=== PATIENT | male | born 1950 | race Caucasian/White ===

== ENCOUNTER 2018-03-18 12:28 | Observation (INO) ==
[2018-03-18] MEDS ORDERED: Tdap (Boostrix) Vaccine 0.5 ML SYRINGE IM ONE (12:46)
--- NOTE | 2018-03-18 12:54 | Emergency Department Note ---
Disposition Clinical Impression: Confusion Fall Qualifiers: Encounter type: initial encounter Qualified Code(s): W19.XXXA - Unspecified fall, initial encounter Closed head injury Qualifiers: Encounter type: initial encounter Qualified Code(s): S09.90XA - Unspecified injury of head, initial encounter Disposition: Admitted As Inpatient Condition: Fair Referrals: Richard Pierson DO [Primary Care Provider] - Forms: ED Satisfaction Letter Time of Disposition: 15:32 Fall HPI - General Chief Complaint: ED Fall Stated Complaint: fall, striking head, dizzy Time Seen by Provider: 03/18/18 12:31 Source: patient, family Nursing Notes Reviewed: Yes Vital Signs Reviewed: Yes - History of Present Illness HPI Narrative: Mr. Vargas, 67-year-old male, presents from home for evaluation of fall this morning. Patient was getting out of bed felt weak, and fell striking the left side of his head on the edge of a nightstand. No loss of consciousness. is concerned as he appears slower of thought however this is improving to her. PMH: Atrial fibrillation on no anticoagulant. Patient was recently started on a diuretic though he is deny history of hypertension. They do note that his prescribing primary care provider instructed him to discontinue the diuretic as his renal function was worsening. No history of CVA or TIA. Anticoagulant: Aspirin 81 by mouth daily. ROS: Positive: As above Negative: Fever, chills, nausea, vomiting, chest pain, palpitations, neck pain, usual back pain, abdominal pain, confusion, changes in vision - Related Data Home Medications Medication Instructions Recorded Confirmed Allopurinol [Zyloprim] 100 mg PO DAILY 12/09/16 12/09/16 Aspirin [Ecotrin] 325 mg PO DAILY 12/09/16 12/09/16 Carvedilol [Coreg] 6.25 mg PO BIDWM 12/09/16 12/09/16 Cholecalciferol (D-3) [Vitamin D] 2,000 unit PO DAILY 12/09/16 12/09/16 Furosemide [Lasix] 40 mg PO DAILY 12/09/16 12/09/16 Insulin Glargine [Lantus] 0 unit SQ BID 12/09/16 12/09/16 amLODIPine [Norvasc] 5 mg PO DAILY 12/09/16 12/09/16 glipiZIDE [Glucotrol] 5 mg PO BIDWM 12/09/16 12/09/16 Allergies Allergy/AdvReac Type Severity Reaction Status Date / Time levofloxacin [From Levaquin] AdvReac Cramping Verified 11/05/17 13:51 of the Muscles All systems ED: reviewed and negative except as stated. Review of Systems: As Per HPI Fall PMH - Past Medical History Medical history: Reports: atrial fibrillation, coronary artery disease, diabetes , GERD, hypertension, renal disease, other Surgical history: Reports: angioplasty/stent (Cardiac x1), cholecystectomy, pacemaker/AICD, other (Esophageal banding) Psychiatric history: Reports: no psych history - Social History Smoking Status: Never smoker Alcohol use: Reports: none Drug use: Reports: none Physical Exam Vital Signs Reviewed General: Patient is alert, oriented, and in no acute distress. He is answering questions appropriately however appears to be slow in his response. Head: Tender hematoma over the left parietal bone above the left ear. Superficial laceration to the scaphia of the left ear, spontaneous hemostasis, no swelling. Eye: normal appearance, PERRL, EOMI, no scleral icterus, no conjunctival injection ENT: mucous membranes moist. No hemotympanum. Neck: normal inspection, trachea midline, full ROM Chest: normal inspection, symmetric chest rise Respiratory: Good respiratory effort. Bilateral breath sounds are clear without wheezing, crackles, or rhonchi. Cardiovascular: Regular rate and rhythm. No clicks, rubs, gallops, or murmors. Normal heart sounds. Abdomen: Obese. Bowel sounds present normoactive x-4 quadrants. Abdomen is soft, nondistended, and nontender. No guarding or rebound. Musculoskeletal: Spontaneously moving all extremities. No midline C-spine tenderness. Strength 5/5 in upper and lower extremities. Skin: warm, dry, intact. Neuro: Alert and oriented x4. Sensation light touch intact and equal bilaterally. Negative. Nose. No pronator drifts. No facial droop or slurring of speech. Psych: Patient's affect is appropriate for situation. - General General appearance: lethargic Course Course Narrative: EKG dated 03/18/18 at 1240 interpreted as a dural paced with a rate of 60. Prolonged UT interval of 226 ms. Prolonged QT/QTC of 474/474. Normal axis. Nonspecific ST-T changes. Compared to previous dated 11/05/2017 also showing atrial paced; no acute ischemic changes or comparison. Patient's mentation appears to be slow both myself as well as the family at bedside. He is neurologically intact otherwise. Next 15:20 Patient reevaluated. He remains neurologically intact with the exception of the slightly slow mentation which is unchanged from presentation. I discussed the patient's family at bedside and they agree that he is not at baseline. During agreement for admission for continued evaluation. Additionally, patient is hyperglycemic. Will provide 10 units subcutaneous insulin and reassess. I discussed the patient with the admitting hospitalist, Dr. Garcia, who agrees to accept the patient for continued evaluation and management. Head CT 03/18/18 12:45 IMPRESSION: No acute intracranial abnormality with few chronic findings as described. D/ / Aniket Hatfield MD / Aniket Hatfield MD Interpreting Provider: Aniket Hatfield MD Chest X-Ray 03/18/18 12:47 IMPRESSION: Calcific atherosclerotic disease aorta. No acute disease. No acute traumatic abnormality is evident. RECOMMENDATION: If clinically there is concern of underlying rib fracture, sternal or other acute traumatic abnormality of the chest, then additional evaluation with dedicated imaging of the area of interest versus CT chest should be considered. D/ / Daljit Stevens / Daljit Stevens Interpreting Provider: Daljit Stevens Vital Signs Temperature 97.8 F 03/18/18 12:37 Pulse Rate 61 03/18/18 12:37 Respiratory Rate 13 03/18/18 12:37 Blood Pressure 127/60 03/18/18 12:37 O2 Sat by Pulse Oximetry 99 03/18/18 12:37 Temperature 97.8 F 03/18/18 12:37 Pulse Rate 59 03/18/18 14:26 Respiratory Rate 9 03/18/18 14:26 Blood Pressure 125/67 03/18/18 14:26 O2 Sat by Pulse Oximetry 98 03/18/18 14:26 Oxygen Delivery Oxygen Delivery Room Air Fall - Lab Data Result diagrams: 03/18/18 12:46 03/18/18 12:46 Lab Results 03/18/18 03/18/18 03/18/18 Range/Units 12:45 12:46 12:46 WBC 2.3 L (4.3-11.1) K/mcL RBC 4.18 L (4.19-5.50) M/mcL Hgb 12.7 L (12.9-16.9) g/dL Hct 33.9 L (37.5-50.1) % MCV 81.1 L (83.0-100.0) fL MCH 30.4 (28.0-33.3) pg MCHC 37.5 H (31.6-35.5) g/dL RDW 13.6 (11.5-14.5) % Plt Count 61 L (140-400) K/mcL MPV 11.7 (9.4-12.4) fL Immature Gran % 0.4 (0-4) % Seg Neutrophils % 63.4 % Lymphocytes % 21.6 % Monocytes % 10.3 % Eosinophils % 3.4 % Basophils % 0.9 % Neutrophils # 1.5 L (1.6-8.9) K/mcL Lymphocytes # 0.5 L (0.6-4.6) K/mcL Monocytes # 0.2 (0.0-1.3) K/mcL Eosinophils # 0.1 (0.0-0.6) K/mcL Basophils # 0.0 (0.0-0.2) K/mcL Platelet Estimate Decreased L (Normal) Immature Plt Fraction 5.9 (1.1-6.1) % PT 12.9 H (9.4-12.1) Seconds INR 1.2 APTT 28.6 (26.0-36.0) Seconds Sodium (136-145) mEq/L Potassium (3.5-5.1) mEq/L Chloride (98-107) mEq/L Carbon Dioxide (23-29) mEq/L BUN (8-23) mg/dL Creatinine (0.70-1.30) mg/dL Est GFR ( Amer) (> 60) Est GFR (Non-Af Amer) (> 60) BUN/Creatinine Ratio (6-26) Glucose (70-105) mg/dL POC Glucose 458 H* (70-99) mg/dL Calculated Osmolality (280-300) Calcium (8.6-10.3) mg/dL Total Bilirubin (0.3-1.0) mg/dL Direct Bilirubin (0.0-0.2) mg/dL Indirect Bilirubin (0.0-1.2) mg/dL AST (13-39) Units/L ALT (7-52) Units/L Alkaline Phosphatase (34-104) Units/L Serum Total Protein (6.4-8.9) g/dL Albumin (3.5-5.7) g/dL Globulin (2.4-3.5) g/dL Albumin/Globulin Ratio (1.1-2.2) Blood Type Antibody Screen 03/18/18 03/18/18 03/18/18 Range/Units 12:46 12:46 13:02 WBC (4.3-11.1) K/mcL RBC (4.19-5.50) M/mcL Hgb (12.9-16.9) g/dL Hct (37.5-50.1) % MCV (83.0-100.0) fL MCH (28.0-33.3) pg MCHC (31.6-35.5) g/dL RDW (11.5-14.5) % Plt Count (140-400) K/mcL MPV (9.4-12.4) fL Immature Gran % (0-4) % Seg Neutrophils % % Lymphocytes % % Monocytes % % Eosinophils % % Basophils % % Neutrophils # (1.6-8.9) K/mcL Lymphocytes # (0.6-4.6) K/mcL Monocytes # (0.0-1.3) K/mcL Eosinophils # (0.0-0.6) K/mcL Basophils # (0.0-0.2) K/mcL Platelet Estimate (Normal) Immature Plt Fraction (1.1-6.1) % PT (9.4-12.1) Seconds INR APTT (26.0-36.0) Seconds Sodium 131 L (136-145) mEq/L Potassium 3.4 L (3.5-5.1) mEq/L Chloride 95 L (98-107) mEq/L Carbon Dioxide 24 (23-29) mEq/L BUN 53 H (8-23) mg/dL Creatinine 2.22 H (0.70-1.30) mg/dL Est GFR ( Amer) 36 L (> 60) Est GFR (Non-Af Amer) 30 L (> 60) BUN/Creatinine Ratio 24 (6-26) Glucose 410 H (70-105) mg/dL POC Glucose 448 H* (70-99) mg/dL Calculated Osmolality 304 H (280-300) Calcium 9.5 (8.6-10.3) mg/dL Total Bilirubin 1.6 H (0.3-1.0) mg/dL Direct Bilirubin 0.4 H (0.0-0.2) mg/dL Indirect Bilirubin 1.2 (0.0-1.2) mg/dL AST 40 H (13-39) Units/L ALT 28 (7-52) Units/L Alkaline Phosphatase 118 H (34-104) Units/L Serum Total Protein 7.2 (6.4-8.9) g/dL Albumin 4.2 (3.5-5.7) g/dL Globulin 3.0 (2.4-3.5) g/dL Albumin/Globulin Ratio 1.4 (1.1-2.2) Blood Type A POSITIVE Antibody Screen NEGATIVE Attestation Statement - Attestation Attestation: I, Erickson Berger DO, examined this patient [id number] and my medical decision-making was reviewed with Dr. John Bill, Resident Physician. I agree with the documented findings, disposition and treatment plan as described except to the extent set forth below. Please see my progress notes for details. NIH Stroke Scale - Level of Consciousness LOC: Alert - LOC Questions LOC Questions: Answers both correctly - LOC Commands LOC Commands: Performs both correctly - Best Gaze Best Gaze: Normal - Visual Visual: No visual loss - Facial Palsy Facial Palsy: Normal - Motor Arms Motor Arm-Left: No drift for 10 seconds Motor Arm-Right: No drift for 10 seconds - Motor Legs Motor Leg-Left: No drift for 5 seconds Motor Leg-Right: No drift for 5 seconds - Limb Ataxia Limb Ataxia: Absent of affected limb too weak to perform exam - Sensory Sensory: Normal - Best Language Best Language: No aphasia - Dysarthria Dysarthria: Normal - Extinction and Inattention Extinction and Inattention: Normal - NIHSS Total Score NIHSS Total Score: 0
[2018-03-18 13:34] LABS: INR 1.2; Prothrombin Time 12.9 Seconds (9.4-12.1)
[2018-03-18 13:35] LABS: Basophils % 0.9 %; Eosinophils # 0.1 K/mcL (0.0-0.6); Eosinophils % 3.4 %; Hematocrit 33.9 % (37.5-50.1); Hemoglobin 12.7 g/dL (12.9-16.9); Immature Granulocytes % 0.4 % (0-4); Immature Platelets 5.9 % (1.1-6.1); Lymphocytes # 0.5 K/mcL (0.6-4.6); Lymphocytes % 21.6 %; Mean Corpuscular Hemoglobin 30.4 pg (28.0-33.3); Mean Corpuscular Volume 81.1 fL (83.0-100.0); Mean Platelet Volume 11.7 fL (9.4-12.4); Monocytes # 0.2 K/mcL (0.0-1.3); Monocytes % 10.3 %; Neutrophils # 1.5 K/mcL (1.6-8.9); Red Blood Count 4.18 M/mcL (4.19-5.50); Red Cell Distribution Width 13.6 % (11.5-14.5); Segmented Neutrophils % 63.4 %
[2018-03-18 13:37] LABS: Activated Partial Thrombo Time 28.6 Seconds (26.0-36.0)
[2018-03-18 14:19] LABS: Mean Corpuscular HGB Conc 37.5 g/dL (31.6-35.5); Platelet Count 61 K/mcL (140-400)
[2018-03-18 14:20] LABS: Platelet Estimate Decreased (Normal)
[2018-03-18 14:21] LABS: Albumin 4.2 g/dL (3.5-5.7); Albumin/Globulin Ratio 1.4 (1.1-2.2); Bilirubin,Direct 0.4 mg/dL (0.0-0.2); Bilirubin,Indirect 1.2 mg/dL (0.0-1.2); Bilirubin,Total 1.6 mg/dL (0.3-1.0); Calcium 9.5 mg/dL (8.6-10.3); Potassium 3.4 mEq/L (3.5-5.1); Total Protein 7.2 g/dL (6.4-8.9)
--- NOTE | 2018-03-18 14:41 | Emergency Department Note ---
Disposition Clinical Impression: Confusion Fall Qualifiers: Encounter type: initial encounter Qualified Code(s): W19.XXXA - Unspecified fall, initial encounter Closed head injury Qualifiers: Encounter type: initial encounter Qualified Code(s): S09.90XA - Unspecified injury of head, initial encounter Disposition: Admitted As Inpatient Condition: Fair Referrals: Richard Pierson DO [Primary Care Provider] - Forms: ED Satisfaction Letter Time of Disposition: 15:40 General Adult HPI - General Chief complaint: ED Fall Stated complaint: fall, striking head, dizzy Time Seen by Provider: 03/18/18 12:31 Source: patient, family - History of Present Illness Pain Scale: 4 - Related Data Home Medications Medication Instructions Recorded Confirmed Allopurinol [Zyloprim] 100 mg PO DAILY 12/09/16 12/09/16 Aspirin [Ecotrin] 325 mg PO DAILY 12/09/16 12/09/16 Carvedilol [Coreg] 6.25 mg PO BIDWM 12/09/16 12/09/16 Cholecalciferol (D-3) [Vitamin D] 2,000 unit PO DAILY 12/09/16 12/09/16 Furosemide [Lasix] 40 mg PO DAILY 12/09/16 12/09/16 Insulin Glargine [Lantus] 0 unit SQ BID 12/09/16 12/09/16 amLODIPine [Norvasc] 5 mg PO DAILY 12/09/16 12/09/16 glipiZIDE [Glucotrol] 5 mg PO BIDWM 12/09/16 12/09/16 Allergies Allergy/AdvReac Type Severity Reaction Status Date / Time levofloxacin [From Levaquin] AdvReac Cramping Verified 11/05/17 13:51 of the Muscles Past Medical History - Past Medical History Medical history: Reports: atrial fibrillation, coronary artery disease, diabetes , GERD, hypertension, renal disease, other Surgical history: Reports: angioplasty/stent (Cardiac x1), cholecystectomy, pacemaker/AICD, other (Esophageal banding) Psychiatric history: Reports: no psych history - Social History Smoking Status: Never smoker Smokeless Tobacco Status: No Alcohol use: Reports: none Drug use: Reports: none Physical Exam - General General appearance: lethargic Course Vital Signs Temperature 97.8 F 03/18/18 12:37 Pulse Rate 61 03/18/18 12:37 Respiratory Rate 13 03/18/18 12:37 Blood Pressure 127/60 03/18/18 12:37 O2 Sat by Pulse Oximetry 99 03/18/18 12:37 Temperature 97.8 F 03/18/18 12:37 Pulse Rate 59 03/18/18 14:26 Respiratory Rate 9 03/18/18 14:26 Blood Pressure 125/67 03/18/18 14:26 O2 Sat by Pulse Oximetry 98 03/18/18 14:26 Oxygen Delivery Oxygen Delivery Room Air Medical Decision Making - Lab Data Result diagrams: 03/18/18 12:46 03/18/18 12:46 Lab Results 03/18/18 03/18/18 03/18/18 Range/Units 12:45 12:46 12:46 WBC 2.3 L (4.3-11.1) K/mcL RBC 4.18 L (4.19-5.50) M/mcL Hgb 12.7 L (12.9-16.9) g/dL Hct 33.9 L (37.5-50.1) % MCV 81.1 L (83.0-100.0) fL MCH 30.4 (28.0-33.3) pg MCHC 37.5 H (31.6-35.5) g/dL RDW 13.6 (11.5-14.5) % Plt Count 61 L (140-400) K/mcL MPV 11.7 (9.4-12.4) fL Immature Gran % 0.4 (0-4) % Seg Neutrophils % 63.4 % Lymphocytes % 21.6 % Monocytes % 10.3 % Eosinophils % 3.4 % Basophils % 0.9 % Neutrophils # 1.5 L (1.6-8.9) K/mcL Lymphocytes # 0.5 L (0.6-4.6) K/mcL Monocytes # 0.2 (0.0-1.3) K/mcL Eosinophils # 0.1 (0.0-0.6) K/mcL Basophils # 0.0 (0.0-0.2) K/mcL Platelet Estimate Decreased L (Normal) Immature Plt Fraction 5.9 (1.1-6.1) % PT 12.9 H (9.4-12.1) Seconds INR 1.2 APTT 28.6 (26.0-36.0) Seconds Sodium (136-145) mEq/L Potassium (3.5-5.1) mEq/L Chloride (98-107) mEq/L Carbon Dioxide (23-29) mEq/L BUN (8-23) mg/dL Creatinine (0.70-1.30) mg/dL Est GFR ( Amer) (> 60) Est GFR (Non-Af Amer) (> 60) BUN/Creatinine Ratio (6-26) Glucose (70-105) mg/dL POC Glucose 458 H* (70-99) mg/dL Calculated Osmolality (280-300) Calcium (8.6-10.3) mg/dL Total Bilirubin (0.3-1.0) mg/dL Direct Bilirubin (0.0-0.2) mg/dL Indirect Bilirubin (0.0-1.2) mg/dL AST (13-39) Units/L ALT (7-52) Units/L Alkaline Phosphatase (34-104) Units/L Serum Total Protein (6.4-8.9) g/dL Albumin (3.5-5.7) g/dL Globulin (2.4-3.5) g/dL Albumin/Globulin Ratio (1.1-2.2) Blood Type Antibody Screen 03/18/18 03/18/18 03/18/18 Range/Units 12:46 12:46 13:02 WBC (4.3-11.1) K/mcL RBC (4.19-5.50) M/mcL Hgb (12.9-16.9) g/dL Hct (37.5-50.1) % MCV (83.0-100.0) fL MCH (28.0-33.3) pg MCHC (31.6-35.5) g/dL RDW (11.5-14.5) % Plt Count (140-400) K/mcL MPV (9.4-12.4) fL Immature Gran % (0-4) % Seg Neutrophils % % Lymphocytes % % Monocytes % % Eosinophils % % Basophils % % Neutrophils # (1.6-8.9) K/mcL Lymphocytes # (0.6-4.6) K/mcL Monocytes # (0.0-1.3) K/mcL Eosinophils # (0.0-0.6) K/mcL Basophils # (0.0-0.2) K/mcL Platelet Estimate (Normal) Immature Plt Fraction (1.1-6.1) % PT (9.4-12.1) Seconds INR APTT (26.0-36.0) Seconds Sodium 131 L (136-145) mEq/L Potassium 3.4 L (3.5-5.1) mEq/L Chloride 95 L (98-107) mEq/L Carbon Dioxide 24 (23-29) mEq/L BUN 53 H (8-23) mg/dL Creatinine 2.22 H (0.70-1.30) mg/dL Est GFR ( Amer) 36 L (> 60) Est GFR (Non-Af Amer) 30 L (> 60) BUN/Creatinine Ratio 24 (6-26) Glucose 410 H (70-105) mg/dL POC Glucose 448 H* (70-99) mg/dL Calculated Osmolality 304 H (280-300) Calcium 9.5 (8.6-10.3) mg/dL Total Bilirubin 1.6 H (0.3-1.0) mg/dL Direct Bilirubin 0.4 H (0.0-0.2) mg/dL Indirect Bilirubin 1.2 (0.0-1.2) mg/dL AST 40 H (13-39) Units/L ALT 28 (7-52) Units/L Alkaline Phosphatase 118 H (34-104) Units/L Serum Total Protein 7.2 (6.4-8.9) g/dL Albumin 4.2 (3.5-5.7) g/dL Globulin 3.0 (2.4-3.5) g/dL Albumin/Globulin Ratio 1.4 (1.1-2.2) Blood Type A POSITIVE Antibody Screen NEGATIVE Attestation Statement - Attestation Attestation: I, Erickson Berger DO, examined this patient [id number] and my medical decision-making was reviewed with Dr. John Bill, Resident Physician. I agree with the documented findings, disposition and treatment plan as described except to the extent set forth below. Please see my progress notes for details. 67-year-old male presents to the emergency room for evaluation of a fall at home. Patient said he is getting up out of bed and felt palpitations lightheadedness and fell sideways hitting his head off his dresser. Since then his had intermittent confusion and slowing of his speech. Family denies any facial asymmetry other signs of trauma. The left side of his head over the external auditory canal and the auricle is a skin abrasion. Patient is not up- to-date on his tetanus. There is no signs of hemotympanum there is no signs of trauma or injury. There is no swelling to the auricle at this point. Vital signs are reviewed and are stable. Patient will have CT imaging of the head and cervical spine x-rays. Patient also chest x-ray EKG labs for any other underlying etiology. Patient is appear concussed at this time despite his presentation is otherwise unremarkable stable. He has no neurologic deficits or symptoms at this point. Patient will require further evaluation. The emergency room and disposition will be determined. See detailed documentation of the physical exam, medical intervention, medical decision-making and disposition in the resident physician's note. No critical care providertreatment course at this time. Conversations with a have appropriate subspecialist as needed. 1445 Patient is still having some intermittent confusion. Patient is answering questions appropriately. Family says that is acting at least a baseline conversation at this point. CT imaging of the head is negative for acute pathology. Vital signs remain stable. Patient will most of her prior admission secondary to the palpitations during the preceding event today. Patient has a history of cirrhosis and list of medications to help with elevated ammonia. Ammonia level will be added on at this point. His liver function testing appears to be stable. Remainder of his labs appear to be at his baseline. He does have chronic pancytopenia with thrombocytopenia and leukopenia. Patient does not show any acute signs of elevated white blood cell count at this point. Patient will have definitive management. In the hospital setting secondary to the generalized weakness the fact intermittent confusion as well as the underlying etiology. Neurology was contacted to make sure they felt that this was a reasonable admission process and evaluation. Patient otherwise clinically stable. Will be admitted to the hospitalist at this time further observation and management. Patient does not have an acute signs of neurologic deficit or acute bleed at this point. No critical care applied.
[2018-03-18] MEDS ORDERED: Insulin Regular, Human 100 UNIT/ML SQ ONE (15:23)
[2018-03-18] MEDS ORDERED: Naloxone 0.4 MG/ML INJ IVP PRN (21:32)
[2018-03-18] MEDS ORDERED: Dextrose Gel 15 GM/37.5 ML TUBE PO PRN ×2 (21:35)
[2018-03-18] MEDS ORDERED: D5% in Water 1,000 ML IVC PRN (21:35)
[2018-03-18] MEDS ORDERED: *HR* Dextrose 50 % in Water (Syg) 50 ML SYRINGE IVP PRN (21:35)
[2018-03-18] MEDS ORDERED: 0.9 % Sodium Chloride 1,000 ML IVC SCH (21:45)
--- NOTE | 2018-03-18 22:48 | Internal Med History&Physical ---
Date of Encounter: 03/18/18 Time of Encounter: 20:00 Internal Medicine - H&P: HPI Chief complaint: Syncope Admitted From: Home Plans for Post Hospital Care: Home History of present illness: Mr. Vargas is a 67 year old male presented to emergency room for syncope. Past medical history is significant for diabetes, A. fib, S/P PPM, cirrhosis, CKD. Patient said he has syncope episode this morning. He fell and hit his left side of head to the nightstand. Patient regained consciousness immediately after fall. Patient denies chest pain, shortness of breath, feeling of hungry, diaphoresis, nausea, or vomiting. Patient is on lactulose for cirrhosis and has 1-2 bowel movement every day regularly, denies diarrhea. Patient complaint burning on urination. In ER, CT head unremarkable. Patient was admitted for syncope. Patient also has uncontrolled diabetes with sugar level over 400 in ER , patient said he does not take his morning dose Lantus today. Past Med Surg Social Fam HX - Past Medical History Medical history: atrial fibrillation, coronary artery disease, diabetes, GERD, hypertension, renal disease, other Psychiatric history: no psych history - Past Surgical History Surgical History: angioplasty/stent, cholecystectomy, pacemaker/AICD, other - Social History Smoking Status: Never smoker Smokeless Tobacco Status: No Alcohol use: none Drug use: none - Family History Mother Living Status: Hx Family Cardiac Disorders: Yes (NH) Father Living Status: Hx Family Respiratory Disorders: Yes (COPD) Internal Medicine - H&P: Meds Allopurinol [Zyloprim] 100 mg PO DAILY 12/09/16 [History] Aspirin [Ecotrin] 325 mg PO DAILY 12/09/16 [History] Carvedilol [Coreg] 6.25 mg PO BIDWM 12/09/16 [History] Insulin Glargine [Lantus] 80 unit SQ BID 12/09/16 [History] Amlodipine Besylate [Amlodipine Besylate] 10 mg PO DAILY 03/18/18 [History] Bumetanide [Bumetanide] 3 mg PO DAILY 03/18/18 [History] Esomeprazole Magnesium [Nexium 24Hr] 20 mg PO DAILY 03/18/18 [History] Insulin LISPRO [Humalog] 0 unit SQ AD PRN 03/18/18 [History] Lactulose [Lactulose] 30 ml PO TID 03/18/18 [History] Spironolactone [Aldactone] 25 mg PO DAILY 03/18/18 [History] metOLazone [Zaroxolyn] 2.5 mg PO DAILY 03/18/18 [History] 3 Allergy/AdvReac Type Severity Reaction Status Date / Time levofloxacin [From Levaquin] AdvReac Cramping Verified 11/05/17 13:51 of the Muscles All Systems PM: A 10-system review of systems was performed and is negative for pertinent findings except as documented above in the HPI. - Constitutional Vitals: Temp Pulse Resp BP Pulse Ox 97.9 F 60 16 135/79 100 03/18/18 19:12 03/18/18 19:12 03/18/18 19:12 03/18/18 19:12 03/18/18 19:12 General appearance: Present: A&O X 3, no acute distress, answers questions appropriately - Head Head exam: Present: atraumatic, normocephalic Additional comments: Bruise on left ear - Eye Eye exam: Present: PERRL, conjuntiva pink, sclera anicteric Pupils: Present: PERRL - Neck Neck exam general surgery: Present: supple, trachea midline. Absent: lymphadenopathy - Respiratory Respiratory exam: Present: CTAB. Absent: accessory muscle use, rales, rhonchi, wheezes - Cardiovascular Cardiovascular exam: Present: RRR, +S1, +S2. Absent: diastolic murmur, gallop, rubs, systolic murmur - GI/Abdominal GI/Abdominal exam: Present: normal bowel sounds, soft, no peritoneal signs. Absent: distended, tenderness - Extremities Exam Extremities exam: Present: warm, radial pulses palpable and symmetrical. Absent : calf tenderness, cyanotic, pedal edema - Neurological Exam Neurological exam: Present: CN II-XII intact, oriented X3, no focal deficits. Absent: pronater drift, facial droop, speech deficit - Skin Skin exam: Present: dry, intact Internal Med - H&P Results - Labs CBC & Chem 7: 03/18/18 12:46 03/18/18 12:46 - EKG Data -: EKG Interpreted by Myself (Atrial paced rhythm) - Assessment and plan (1) Syncope Current Visit: Yes Status: Acute Assessment and plan: Patient has syncope and fall today, etiology is undetermined. Will place patient on syncope workup. - Head CT has been done in ER, unremarkable - Continuous cardiac monitoring to rule out arrhythmia - Echo and duplex carotid bilateral - Orthostatic vitals - Consult cardiology considering patient has pacemaker Qualifiers: Syncope type: unspecified Qualified Code(s): R55 - Syncope and collapse (2) Cirrhosis Current Visit: Yes Status: Acute Assessment and plan: Patient has history of cirrhosis due to fatty liver. Continue home medication diuretics and lactulose. Patient has a mild elevated ammonia level. Will closely follow-up. Qualifiers: Hepatic cirrhosis type: other cirrhosis Qualified Code(s): K74.69 - Other cirrhosis of liver (3) Diabetes Current Visit: Yes Status: Acute Assessment and plan: Continue basal and sliding scale insulin coverage. Closely monitor glucose level. Qualifiers: Diabetes mellitus type: type 2 Diabetes mellitus shelter insulin use: with shelter use Diabetes mellitus complication status: with kidney complications Diabetes mellitus complication detail: with chronic kidney disease Chronic kidney disease stage: stage 3 (moderate) Qualified Code(s): E11.22 - Type 2 diabetes mellitus with diabetic chronic kidney disease; N18.3 - Chronic kidney disease, stage 3 (moderate); N18.3 - Chronic kidney disease, stage 3 (moderate); Z79.4 - USP (current) use of insulin; Z79.4 - extermination inspector (current) use of insulin; Z79.4 - USP (current) use of insulin; Z79.4 - USP (current) use of insulin (4) A-fib Current Visit: Yes Status: Acute Assessment and plan: Heart rate is well controlled. Patient is not on anticoagulation due to thrombocytopenia (called by cirrhosis) and history of GI bleed. Patient is on aspirin Qualifiers: Atrial fibrillation type: chronic Qualified Code(s): I48.2 - Chronic atrial fibrillation (5) DVT prophylaxis Current Visit: Yes Status: Acute Assessment and plan: EPCD, no anticoagulation because of thrombocytopenia (6) Closed head injury Current Visit: Yes Status: Acute Assessment and plan: CT head negative. Continue closely monitor patient. Qualifiers: Encounter type: initial encounter Qualified Code(s): S09.90XA - Unspecified injury of head, initial encounter - Time Spent With Patient Total time spent is greater than 50% in coordination of care (as documented) at patient's floor/unit and/or counseling patient: 40 minutes Greater than 35 minutes
[2018-03-18 22:52] LABS: Bilirubin,Urine Negative (Negative); Blood,Urine Negative (Negative); Clarity,Urine Clear (Clear); Color,Urine Yellow (Yellow); Glucose,Urine (UA) 100 mg/dL (Normal); Ketones,Urine Negative (Negative); Leukocyte Esterase,Urine Negative (Negative); Nitrite,Urine Negative (Negative); Protein,Urine Negative (Neg-Trace); Urobilinogen,Urine Normal (Normal)
[2018-03-18] MEDS: Lactulose Oral Soln 20 GM/30 ML UDC PO SCH (23:53)
[2018-03-18] MEDS: Insulin LISPRO 300 UNITS/3 ML VIAL SQ SCH (23:53)
[2018-03-18] MEDS: Insulin DETEMIR 100 UNIT/ML X5UNITS SQ SCH (23:54)
[2018-03-19 04:24] LABS: Hematocrit 35.1 % (37.5-50.1); Immature Granulocytes % 0.4 % (0-4); Mean Corpuscular Volume 82.4 fL (83.0-100.0); Red Blood Count 4.26 M/mcL (4.19-5.50); Red Cell Distribution Width 13.8 % (11.5-14.5)
[2018-03-19 04:26] LABS: Basophils % 0.8 %; Eosinophils # 0.1 K/mcL (0.0-0.6); Eosinophils % 4.2 %; Hemoglobin 12.8 g/dL (12.9-16.9); Immature Platelets 6.2 % (1.1-6.1); Lymphocytes # 0.7 K/mcL (0.6-4.6); Lymphocytes % 27.8 %; Mean Corpuscular HGB Conc 36.5 g/dL (31.6-35.5); Mean Platelet Volume 12.1 fL (9.4-12.4); Monocytes # 0.3 K/mcL (0.0-1.3); Monocytes % 12.9 %; Neutrophils # 1.4 K/mcL (1.6-8.9); Nucleated Red Blood Cells 0.8 /100 WBC (0); Segmented Neutrophils % 53.9 %
[2018-03-19 04:27] LABS: Platelet Count 65 K/mcL (140-400)
[2018-03-19 04:43] LABS: Calcium 9.8 mg/dL (8.6-10.3); Magnesium 1.9 mg/dL (1.6-2.6); Potassium 3.6 mEq/L (3.5-5.1)
[2018-03-19] MEDS: Spironolactone 25 MG TABLET PO SCH (08:06)
[2018-03-19] MEDS: amLODIPine 5 MG TABLET PO SCH (08:06)
[2018-03-19] MEDS: Bumetanide 1 MG TABLET PO SCH (08:06)
[2018-03-19] MEDS: metOLazone 2.5 MG TABLET PO SCH (08:06)
[2018-03-19] MEDS: Aspirin Enteric Coated 325 MG Tablet PO SCH (08:06)
[2018-03-19] MEDS: Lactulose Oral Soln 20 GM/30 ML UDC PO SCH ×3 (08:06→20:37)
[2018-03-19] MEDS: Insulin LISPRO 300 UNITS/3 ML VIAL SQ SCH ×4 (08:06→20:37)
[2018-03-19] MEDS: Insulin DETEMIR 100 UNIT/ML X5UNITS SQ SCH ×2 (08:07→20:38)
--- NOTE | 2018-03-19 10:14 | Internal Med Progress Note ---
Date of Encounter: 03/19/18 Time of Encounter: 10:11 - Assessment and plan (1) Syncope Current Visit: Yes Status: Acute Assessment and plan: Patient has syncope and fall, etiology is undetermined. syncope work up - Head CT has been done in ER, unremarkable - Continuous cardiac monitoring to rule out arrhythmia - Echo and duplex carotid bilateral - Orthostatic vitals- change in VS upon standing -drop in BP slight elevation in HR - Consult cardiology considering patient has pacemaker Qualifiers: Syncope type: unspecified Qualified Code(s): R55 - Syncope and collapse (2) Closed head injury Current Visit: Yes Status: Acute Assessment and plan: CT head negative. Neuro checks Qualifiers: Encounter type: initial encounter Qualified Code(s): S09.90XA - Unspecified injury of head, initial encounter (3) Cirrhosis Current Visit: Yes Status: Acute Assessment and plan: Patient has history of cirrhosis due to fatty liver. Continue home medication diuretics and lactulose. Ammonia elevated this am cont lactulose and recheck ammonia today, no neuro changes Qualifiers: Hepatic cirrhosis type: other cirrhosis Qualified Code(s): K74.69 - Other cirrhosis of liver (4) Diabetes Current Visit: Yes Status: Acute Assessment and plan: was elevated in ED >400 Improved today Continue basal and sliding scale insulin coverage. Closely monitor glucose level. Qualifiers: Diabetes mellitus type: type 2 Diabetes mellitus terminal operator insulin use: with terminal operator use Diabetes mellitus complication status: with kidney complications Diabetes mellitus complication detail: with chronic kidney disease Chronic kidney disease stage: stage 3 (moderate) Qualified Code(s): E11.22 - Type 2 diabetes mellitus with diabetic chronic kidney disease; N18.3 - Chronic kidney disease, stage 3 (moderate); N18.3 - Chronic kidney disease, stage 3 (moderate); Z79.4 - watermelon inspector (current) use of insulin; Z79.4 - retirement (current) use of insulin; Z79.4 - retirement (current) use of insulin; Z79.4 - watermelon inspector (current) use of insulin (5) A-fib Current Visit: Yes Status: Acute Assessment and plan: Heart rate is well controlled. Patient is not on anticoagulation due to thrombocytopenia (called by cirrhosis) and history of GI bleed. Patient is on aspirin cardiology consulted interrogate pacemaker Qualifiers: Atrial fibrillation type: chronic Qualified Code(s): I48.2 - Chronic atrial fibrillation (6) DVT prophylaxis Current Visit: Yes Status: Acute Assessment and plan: EPCD, no anticoagulation because of thrombocytopenia - Time Spent With Patient Total time spent is greater than 50% in coordination of care (as documented) at patient's floor/unit and/or counseling patient: - Subjective Interval history: Patient seen an examined at bedside, denies any headache visual changes CP or SOB. Discussed treatment plan and patient verbalized understanding - Constitutional Vitals: Temp Pulse Resp BP Pulse Ox 98.0 F 68 16 125/70 99 03/19/18 07:28 03/19/18 07:28 03/19/18 07:28 03/19/18 07:28 03/19/18 07:28 General appearance: Present: A&O X 3, no acute distress, answers questions appropriately - Head Head exam: Present: atraumatic, normocephalic - Eye Eye exam: Present: PERRL, conjuntiva pink, sclera anicteric Pupils: Present: PERRL - Neck Neck exam general surgery: Present: supple, trachea midline. Absent: lymphadenopathy - Respiratory Respiratory exam: Present: CTAB. Absent: accessory muscle use, rales, rhonchi, wheezes - Cardiovascular Cardiovascular exam: Present: RRR, +S1, +S2. Absent: diastolic murmur, gallop, rubs, systolic murmur - GI/Abdominal GI/Abdominal exam: Present: normal bowel sounds, soft, no peritoneal signs. Absent: distended, tenderness - Extremities Exam Extremities exam: Present: warm, radial pulses palpable and symmetrical. Absent : calf tenderness, cyanotic, pedal edema - Neurological Exam Neurological exam: Present: CN II-XII intact, oriented X3, no focal deficits. Absent: pronater drift, facial droop, speech deficit - Skin Skin exam: Present: dry, intact Internal Medicine: Result - Labs CBC & Chem 7: 03/19/18 04:11 03/19/18 04:11 Labs: Short CBC 03/19/18 Range/Units 04:11 WBC 2.6 L (4.3-11.1) K/mcL Hgb 12.8 L (12.9-16.9) g/dL Hct 35.1 L (37.5-50.1) % Plt Count 65 L (140-400) K/mcL Neutrophils # 1.4 L (1.6-8.9) K/mcL BMP 03/19/18 04:11 Sodium 134 L Potassium 3.6 Chloride 97 L Carbon Dioxide 26 BUN 52 H Creatinine 2.20 H Glucose 184 H Calcium 9.8 Urine 03/18/18 Range/Units 22:40 Urine Color Yellow (Yellow) Urine Clarity Clear (Clear) Urine pH 7.0 (5.0-8.0) pH Units Ur Specific Loraine 1.010 (1.010-1.025) Urine Protein Negative (Neg-Trace) mg/dL Urine Glucose (UA) 100 H (Normal) mg/dL - ABG Interpretation ABG results: PT/INR, D-dimer PT 12.9 Seconds (9.4-12.1) H 03/18/18 12:46 Consult Discharge Plan - Plan Referrals: Richard Pierson DO [Primary Care Provider] -
--- NOTE | 2018-03-19 18:13 | Event Note ---
Date of Encounter: 03/19/18 Time of Encounter: 18:08 - Cardiology Event Note Patient with possible syncopal episode. Has pacemaker. Device interrogated with no significant events. Has paroxysmal atrial fibrillation. Per patient reports has known PAF. Not on anticoagulation per patient due to esophageal varices. TTE with LVEF preserved, no segmental wall motion abnormalities. Patient follows with [facility] cardiology. Cardiology will sign off. Recommend patient follow up with his primary autotransfusionist after discharge.
[2018-03-20 05:55] LABS: Basophils % 0.8 %; Eosinophils # 0.1 K/mcL (0.0-0.6); Eosinophils % 4.2 %; Hematocrit 35.3 % (37.5-50.1); Immature Granulocytes % 0.4 % (0-4); Immature Platelets 7.1 % (1.1-6.1); Lymphocytes # 0.6 K/mcL (0.6-4.6); Lymphocytes % 23.4 %; Mean Corpuscular HGB Conc 36.8 g/dL (31.6-35.5); Mean Corpuscular Hemoglobin 30.2 pg (28.0-33.3); Mean Corpuscular Volume 82.1 fL (83.0-100.0); Mean Platelet Volume 12.4 fL (9.4-12.4); Monocytes # 0.3 K/mcL (0.0-1.3); Monocytes % 12.1 %; Neutrophils # 1.6 K/mcL (1.6-8.9); Nucleated Red Blood Cells 0.8 /100 WBC (0); Red Cell Distribution Width 13.7 % (11.5-14.5); Segmented Neutrophils % 59.1 %
[2018-03-20 06:13] LABS: Potassium 3.4 mEq/L (3.5-5.1)
[2018-03-20 06:17] LABS: Platelet Count 67 K/mcL (140-400)
[2018-03-20] MEDS: Bumetanide 1 MG TABLET PO SCH (09:15)
[2018-03-20] MEDS: Spironolactone 25 MG TABLET PO SCH (09:15)
[2018-03-20] MEDS: amLODIPine 5 MG TABLET PO SCH (09:15)
[2018-03-20] MEDS: Aspirin Enteric Coated 325 MG Tablet PO SCH (09:16)
[2018-03-20] MEDS: Lactulose Oral Soln 20 GM/30 ML UDC PO SCH ×2 (09:16→14:59)
[2018-03-20] MEDS: Insulin LISPRO 300 UNITS/3 ML VIAL SQ SCH ×2 (09:16→12:08)
[2018-03-20] MEDS: metOLazone 2.5 MG TABLET PO SCH (09:16)
[2018-03-20] MEDS: Insulin DETEMIR 100 UNIT/ML X5UNITS SQ SCH (09:29)
[2018-03-20 11:13] VITALS: BP 134/74
--- NOTE | 2018-03-20 13:45 | Discharge Summary ---
- NOTES TO OUTPATIENT PROVIDER Notes to Outpatient Provider: Fall/syncopal episode occuring during position change- orthostatic VS positive Orders not resulted at time of discharge: Pending orders 03/20/18 14:30 Ammonia Routine Date of Encounter: 03/20/18 Time of Encounter: 13:42 - Discharge Diagnosis (1) Syncope Priority: Primary Status: Acute Qualifiers: Syncope type: unspecified Qualified Code(s): R55 - Syncope and collapse (2) Closed head injury Priority: Primary Status: Acute Qualifiers: Encounter type: initial encounter Qualified Code(s): S09.90XA - Unspecified injury of head, initial encounter (3) Cirrhosis Priority: Secondary Status: Chronic Qualifiers: Hepatic cirrhosis type: other cirrhosis Qualified Code(s): K74.69 - Other cirrhosis of liver (4) Diabetes Priority: Secondary Status: Chronic Qualifiers: Diabetes mellitus type: type 2 Diabetes mellitus terminal computer operator insulin use: with mcc use Diabetes mellitus complication status: with kidney complications Diabetes mellitus complication detail: with chronic kidney disease Chronic kidney disease stage: stage 3 (moderate) Qualified Code(s): E11.22 - Type 2 diabetes mellitus with diabetic chronic kidney disease; N18.3 - Chronic kidney disease, stage 3 (moderate); N18.3 - Chronic kidney disease, stage 3 (moderate); Z79.4 - intermediate school teacher (current) use of insulin; Z79.4 - MCFP (current) use of insulin; Z79.4 - MCFP (current) use of insulin; Z79.4 - MCFP (current) use of insulin (5) A-fib Priority: Secondary Status: Chronic Qualifiers: Atrial fibrillation type: chronic Qualified Code(s): I48.2 - Chronic atrial fibrillation Hospital course: Mr. Vargas is a 67 year old male past medical hx significant for DM afib s/p ppm cirrhosis CKD pacemaker/ AICD esophageal banding PAF not anticoagulated dt esophageal varcies . Patient had a syncopal episode , he was attempting to get out of bed when he felt palpitation lightheaded fell striking his head against night stand. He has a few seconds of LOC, he was confused and was brought to ED for evaluation CT of head was negative Labwork did show elevated blood sugar but patient did not take insulin. No sign of infectious process Carotoid duplex completed - nonstenotic plaques only in both bifurcation and carotid artery. Cardiology did see patient pacemaker device interrogated with no significant events. TTE with LVEF preserved, no segmental wall motion abnormalities. Cardiology recommend to follow up with his primary wrister. No neuro changes no cardiac events. He is A/O X3 appropiate and following commands Orhtostatic vitals did show significance drop in BP upon standing. He did have elevated blood glucose during admission, however it appears his basal insulin at a lower dose, than home. he will resume his home dose upon discharge. He will follow up with PCP and cardiology continue home medications, slow changes in position changes to avoid sudden drop in BP. Patient is on several diuretics (dt cirrhosis) and BBB. Patient verbalized understanding He is hemodynamically stable and ready for discharge Discharge discussed with: patient - Time Spent with Patient Total time spent providing and/or coordinating discharge services: - Discharge Medications Home Medications: Allopurinol [Zyloprim] 100 mg PO DAILY 12/09/16 [History] Aspirin [Ecotrin] 325 mg PO DAILY 12/09/16 [History] Carvedilol [Coreg] 6.25 mg PO BIDWM 12/09/16 [History] Insulin Glargine [Lantus] 80 unit SQ BID 12/09/16 [History] Amlodipine Besylate 10 mg PO DAILY 03/18/18 [History] Bumetanide 3 mg PO DAILY 03/18/18 [History] Esomeprazole Magnesium [Nexium 24Hr] 20 mg PO DAILY 03/18/18 [History] Insulin LISPRO [Humalog] 0 unit SQ AD PRN 03/18/18 [History] Lactulose 30 ml PO TID 03/18/18 [History] Spironolactone [Aldactone] 25 mg PO DAILY 03/18/18 [History] metOLazone [Zaroxolyn] 2.5 mg PO DAILY 03/18/18 [History] Allergies/Adverse Reactions: 3 Allergy/AdvReac Type Severity Reaction Status Date / Time levofloxacin [From Levaquin] AdvReac Cramping Verified 11/05/17 13:51 of the Muscles Date of admission: 03/18/18 18:03 Primary care physician: Richard Pierson DO Discharging clinician: Linda Benitez Anticipated date of discharge: 03/20/18 - Constitutional Vitals: Temp Pulse Resp BP Pulse Ox 98.0 F 62 16 134/74 99 03/20/18 11:09 03/20/18 11:09 03/20/18 11:09 03/20/18 11:09 03/20/18 11:09 General appearance: Present: A&O X 3, no acute distress, answers questions appropriately - Head Head exam: Present: atraumatic, normocephalic - Eye Eye exam: Present: PERRL, conjuntiva pink, sclera anicteric Pupils: Present: PERRL - Neck Neck exam general surgery: Present: supple, trachea midline. Absent: lymphadenopathy - Respiratory Respiratory exam: Present: CTAB. Absent: accessory muscle use, rales, rhonchi, wheezes - Cardiovascular Cardiovascular exam: Present: RRR, +S1, +S2. Absent: diastolic murmur, gallop, rubs, systolic murmur - GI/Abdominal GI/Abdominal exam: Present: normal bowel sounds, soft, no peritoneal signs. Absent: distended, tenderness - Extremities Exam Extremities exam: Present: warm, radial pulses palpable and symmetrical. Absent : calf tenderness, cyanotic, pedal edema - Neurological Exam Neurological exam: Present: CN II-XII intact, oriented X3, no focal deficits. Absent: pronater drift, facial droop, speech deficit - Skin Skin exam: Present: dry, intact - Patient Status Disposition: Home, Self-Care Condition: Fair Functional capacity at discharge: independent ambulation - Discharge Instructions Instructions: Atrial Fibrillation (DC), Syncope (DC), Diabetes Mellitus Type 2 in Adults (DC) Follow Up With: Richard Pierson DO [Primary Care Provider] - Additional Instructions: Follow up with cardiology - Diet and Activity Activity: increase activity as tolerated Diet: advance to your usual diet (Change position slowly )
[2018-03-20] MEDS ORDERED: Insulin LISPRO 300 UNITS/3 ML VIAL SQ SCH (13:48)
--- NOTE | 2018-03-20 15:44 | Electrocardiograph Report ---
[address] [address] Test Date: 2018-03-18 Pat Name: Arron Vargas Department: [id number] Room: 3B21 Gender: M Audio Production Engineer: : [id number] Requested By: Erickson Berger Order Number: [id number] Reading MD: Sonam Ag Measurements Intervals Chambers Rate: 60 P: 241 NV: 226 QRS: 22 QRSD: 109 T: 28 QT: 474 QTc: 474 Interpretive Statements ELECTRONIC ATRIAL PACEMAKER ABNORMAL RHYTHM ECG Electronically Signed On 03-20-2018 15:43:12 EDT by Sonam Ag
== END 2018-03-20 17:08 | disposition home or self-care (01) ==
LOC: 3BNU 12:28 → EMEROO 12:28 → 3BNU 18:24
PROVIDERS: ADMIT Student in an Organized Health Care Education/Training Program; ATTEND Student in an Organized Health Care Education/Training Program